=== PATIENT | female | born 1935 | race Caucasian/White ===

== ENCOUNTER 2020-06-03 12:44 | Emergency (ER) | payer MEDICARE ==
[~2020-06-03] VITALS: Ht 157.5 cm; Wt 65.1 kg
[~2020-06-03 12:44] MED LIST: ALEN70TA6 PO; GLUC1CAP18 PO; KETO10TA PO; LISI-167 PO; MULT-709 PO; OMEG1CAP23 PO; OXYC-302 PO; OXYM-22 NS; POLY17PO5 PO
--- NOTE | 2020-06-03 13:24 | NUR ---
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 NICKN. .
[2020-06-03 14:49] VITALS: BP 174/63
--- NOTE | 2020-06-03 14:52 | NUR ---
TASK RN: PT RESTING ON [employer], CALL LIGHT WITHIN REACH. VSS.
== END 2020-06-03 15:40 | disposition home or self-care (01) ==
LOC: ED 14:04
DX: S83.91XA Sprain of unspecified site of right knee, initial encounter (principal); I10 Essential (primary) hypertension; Z87.891 Personal history of nicotine dependence; X50.1XXA Overexertion from prolonged static or awkward postures, initial encounter; Y93.89 Activity, other specified; Y92.098 Other place in other non-institutional residence as the place of occurrence of the external cause; Y99.8 Other external cause status
CPT/HCPCS: 99284